=== PATIENT | female | born 1935 | race Caucasian/White ===

== ENCOUNTER 2017-04-08 14:01 | Inpatient (IN) | payer OTHER, MEDICAID ==
[~2017-04-08] VITALS: Ht 160 cm; Wt 68.0 kg
--- NOTE | 2017-04-08 14:10 | NUR ---
PATIENT WAS SEEN AND EVAL BY DR ALFARO AT BEDSIDE 01A. PATIENT NOTED NOT IN ANY DISTRESS.
[2017-04-08 14:40] LABS: BASOPHILS # (AUTO) 0.1 K/uL (0.0-8.0); BASOPHILS % (AUTO) 0.7 % (0.0-2.0); EOSINOPHILS # (AUTO) 0.4 K/uL (0.0-0.7); EOSINOPHILS % (AUTO) 2.8 % (0.0-7.0); HEMATOCRIT 40.5 % (31.2-41.9); HEMOGLOBIN 13.4 g/dL (10.9-14.3); LYMPHOCYTES # (AUTO) 3.6 K/uL (20.0-40.0); LYMPHOCYTES % (AUTO) 26.5 % (20.5-51.5); MEAN CORPUSCULAR HEMOGLOBIN 28.9 uug (24.7-32.8); MEAN CORPUSCULAR HGB CONC 33 g/dL (32.3-35.6); MONOCYTES % (AUTO) 7.6 % (0.0-11.0); NEUTROPHILS # (AUTO) 8.4 K/uL (1.8-8.9); NEUTROPHILS % (AUTO) 62.4 % (38.5-71.5); PLATELET COUNT (AUTO) 346 K/uL (179-408); RED BLOOD CELL COUNT(AUTO) 4.65 MIL/uL (3.63-4.92); WHITE BLOOD COUNT (AUTO) 13.5 K/uL (3.8-11.8)
[2017-04-08 14:57] LABS: CARBON DIOXIDE 31 mmol/L (21-32); CHLORIDE 103 mmol/L (98-107); CREATININE 0.7 mg/dL (0.6-1.3); GLUCOSE 146 mg/dL (74-106); POTASSIUM 3.2 mmol/L (3.5-5.1); UREA NITROGEN, BLOOD 16 mg/dL (7-18)
[2017-04-08 15:02] LABS: ALANINE AMINOTRANSFERASE 10 U/L (14-59); ALKALINE PHOSPHATASE 73 U/L (50-136); ASPARTATE AMINOTRANSFERASE 14 U/L (15-37); BILIRUBIN,DIRECT 0.1 mg/dL (0.0-0.2); BILIRUBIN,TOTAL 0.3 mg/dL (0.2-1.0); TOTAL PROTEIN, SERUM 8.1 g/dL (6.4-8.2)
[2017-04-08] MEDS ORDERED: ASPIRIN PO (15:18)
--- NOTE | 2017-04-08 16:44 | NUR ---
pt transfered to floor in stable condition.
[2017-04-08 17:20] VITALS: BP 136/50
--- NOTE | 2017-04-08 17:20 | NUR ---
PATIENT ARRIVED ON TELE UNIT, VITALS TAKEN, PATIENT OBSERVED FOR SKIN CONDITIONS, NONE SEEN. PATIENT IS CURRENTLY IN BED, TOLERATING MEAL, NO EVIDENCE OF DISTRESS NOTED, BED IN LOW POSITION, SIDE RAILS UP X2.
[2017-04-08] MEDS ORDERED: HYDROCODONE/APAP 5-325MG TABLET PO PRN (19:30)
[2017-04-08] MEDS ORDERED: ONDANSETRON 4 MG/2 ML VIAL IV PRN (19:30)
[2017-04-08] MEDS ORDERED: ACETAMINOPHEN 325 MG TABLET PO PRN (19:30)
[2017-04-08] MEDS ORDERED: MAGNESIUM HYDROXIDE 30 ML LIQUID UDC PO PRN (19:30)
[2017-04-08] MEDS ORDERED: Z GUARD REMEDY PASTE 57 GM TUBE TOP PRN (19:30)
[2017-04-08] MEDS ORDERED: ZOLPIDEM 5 MG TABLET PO PRN (19:30)
[2017-04-08 20:00] VITALS: BP 100/73
[2017-04-08] MEDS ORDERED: POTASSIUM CHLORIDE 10 MEQ CAPSULE.SA PO ONE (20:15)
[2017-04-08] MEDS ORDERED: DEXTROSE 50% 50 ML DISP.SYRIN IV PRN (20:15)
[2017-04-08] MEDS ORDERED: ALBUTEROL SULFATE 1.25 MG/3 ML NEBU NEB PRN (20:15)
[2017-04-08] MEDS: BLOOD SUGAR DIAGNOSTIC 1 EACH STRIP VI SCH (20:43)
[2017-04-08] MEDS: methylPREDNISolone SOD SUCC 40 MG/ML VIAL IV SCH (20:44)
[2017-04-08] MEDS: INSULIN REGULAR, HUMAN 300 UNIT/3 ML VIAL SQ PRN (20:49)
[2017-04-08] MEDS ORDERED: ATORVASTATIN 20 MG TABLET PO SCH (21:00)
--- NOTE | 2017-04-08 21:16 | NUR ---
Nasal specimen sent to the lab for influenza A & B test.
--- NOTE | 2017-04-08 22:30 | NUR ---
Influenza A & B test done, with negative result.
[2017-04-08 23:53] VITALS: BP 124/60
[2017-04-09 04:00] VITALS: BP 117/57
[2017-04-09] MEDS: methylPREDNISolone SOD SUCC 40 MG/ML VIAL IV SCH ×2 (05:51→15:14)
--- NOTE | 2017-04-09 07:00 | NUR ---
No significant change vital signs WNL.
--- NOTE | 2017-04-09 07:00 | NUR ---
RECEIVED REPORT FROM [facility] OPERATOR NURSE, PATIENT IN BED AWAKE REQUESTING SNACKS AND COFFEE. NO EVIDENCE OF DISTRESS NOTED, BED IN LOW POSITION, SIDE RAILS UP X2.
[2017-04-09] MEDS: BLOOD SUGAR DIAGNOSTIC 1 EACH STRIP VI SCH ×3 (07:16→17:21)
[2017-04-09 07:18] LABS: CARBON DIOXIDE 27 mmol/L (21-32); CHLORIDE 103 mmol/L (98-107); CHOLESTEROL 124 mg/dL (<200); CREATININE 0.7 mg/dL (0.6-1.3); GLUCOSE 238 mg/dL (74-106); HDL CHOLESTEROL 50 mg/dL (40-60); PHOSPHOROUS 2.5 mg/dL (2.5-4.9); POTASSIUM 4.1 mmol/L (3.5-5.1); TRIGLYCERIDES 52 MG/DL (30-150); UREA NITROGEN, BLOOD 18 mg/dL (7-18)
[2017-04-09] MEDS: IPRATROPIUM BROMIDE 0.5 MG/2.5 ML NEBU NEB SCH ×2 (07:24→13:41)
[2017-04-09] MEDS: INSULIN REGULAR, HUMAN 300 UNIT/3 ML VIAL SQ PRN ×3 (08:12→17:23)
[2017-04-09] MEDS ORDERED: ASPIRIN 325 MG TABLET PO SCH (09:00)
[2017-04-09 11:47] VITALS: BP 148/63
[2017-04-09 15:14] LABS: BASOPHILS % (AUTO) 0.2 % (0.0-2.0); HEMATOCRIT 39.8 % (31.2-41.9); HEMOGLOBIN 13.2 g/dL (10.9-14.3); LYMPHOCYTES # (AUTO) 1.2 K/uL (20.0-40.0); LYMPHOCYTES % (AUTO) 7.4 % (20.5-51.5); MEAN CORPUSCULAR HEMOGLOBIN 28.8 uug (24.7-32.8); MEAN CORPUSCULAR HGB CONC 33 g/dL (32.3-35.6); MEAN CORPUSCULAR VOLUME 87.1 fL (75.5-95.3); MONOCYTES # (AUTO) 0.3 K/uL (2.0-10.0); MONOCYTES % (AUTO) 2.2 % (0.0-11.0); NEUTROPHILS # (AUTO) 14.1 K/uL (1.8-8.9); NEUTROPHILS % (AUTO) 90.2 % (38.5-71.5); PLATELET COUNT (AUTO) 336 K/uL (179-408); RED BLOOD CELL COUNT(AUTO) 4.57 MIL/uL (3.63-4.92); WHITE BLOOD COUNT (AUTO) 15.7 K/uL (3.8-11.8)
[2017-04-09 15:49] VITALS: BP 147/63
[2017-04-09] MEDS ORDERED: MAGN400O6 PO (15:52)
[2017-04-09] MEDS ORDERED: METH4TAB3 PO (15:52)
[2017-04-09] MEDS ORDERED: AZIT250T13 PO (15:52)
[2017-04-09] MEDS ORDERED: ASPI-612 PO (15:52)
[2017-04-09] MEDS ORDERED: Insulin Glargine,Hum SQ (15:52)
[2017-04-09] MEDS ORDERED: Blood Sugar Diagnostic VI (15:52)
[2017-04-09] MEDS ORDERED: INSU100V28 SQ (15:52)
[2017-04-09] MEDS ORDERED: ALBU1.25 NEB (15:52)
[2017-04-09] MEDS ORDERED: ATOR20TA PO (15:52)
[2017-04-09] MEDS ORDERED: MENT71OI TOP (15:52)
[2017-04-09] MEDS ORDERED: IPRA0.2S6 NEB (15:52)
--- NOTE | 2017-04-09 17:49 | NUR ---
Patient education on discharge instructions given. IV removed, report called to [facility]. Patient has no evidence of distress at this time and is being picked up by [facility] at this time to be transported to [facility].
[2017-04-09] MEDS ORDERED: INSULIN GLARGINE,HUM 300 UNITS/3 ML CARTRIDGE SQ SCH (21:00)
== END 2017-04-09 17:50 | DRG 190 ==
LOC: ER 14:01 → TELE 17:09
PROVIDERS: ADMIT Nurse Practitioner Acute Care; ATTEND Nurse Practitioner Acute Care
DX: J44.0 Chronic obstructive pulmonary disease with (acute) lower respiratory infection (principal); J18.9 Pneumonia, unspecified organism; E11.65 Type 2 diabetes mellitus with hyperglycemia; I50.22 Chronic systolic (congestive) heart failure; J44.1 Chronic obstructive pulmonary disease with (acute) exacerbation; Z87.891 Personal history of nicotine dependence; M40.209 Unspecified kyphosis, site unspecified; Z86.73 Personal history of transient ischemic attack (TIA), and cerebral infarction without residual deficits; Z91.81 History of falling; Z79.899 Other long term (current) drug therapy; Z79.82 Long term (current) use of aspirin; D72.829 Elevated white blood cell count, unspecified; T38.0X5A Adverse effect of glucocorticoids and synthetic analogues, initial encounter; Y92.009 Unspecified place in unspecified non-institutional (private) residence as the place of occurrence of the external cause; E87.6 Hypokalemia; Z79.4 Long term (current) use of insulin
CPT/HCPCS: 36415; 70030-TC; 71045; 83605; 83735; 84100; 85025; 87040; 87400; 92610; 93005; 94640; 94664; A4663; J1815; J2920; J3590